=== PATIENT | male | born 1960 | race Caucasian/White ===

== ENCOUNTER 2019-06-29 16:01 | Emergency (ER) | payer OTHER ==
[~2019-06-29] VITALS: Ht 160 cm; Wt 59.0 kg
[2019-06-29] MEDS ORDERED: LIDOCAINE 0.5% HCL 50 ML VIAL ONE (16:37)
[2019-06-29] MEDS ORDERED: LIDOCAINE 1%-EPI 1:100,000 20 ML VIAL ONE (16:45)
[2019-06-29] MEDS ORDERED: LIDOCAINE 2%-EPI 1:100,000 30 ML VIAL TP ONE (17:00)
[2019-06-29] MEDS ORDERED: LIDOCAINE 2% 20 ML MDV TP ONE (17:00)
[2019-06-29] MEDS ORDERED: TDAP [DIPH/PERTUSSIS/TET] 0.5 ML VIAL IM ONE ×2 (17:00)
--- NOTE | 2019-06-29 18:30 | NUR ---
Patient discharged to home in stable condition. Written and verbal after care instructions given. Patient verbalizes understanding of instruction.
[2019-06-29 18:54] VITALS: BP 150/89
== END 2019-06-29 18:30 | disposition home or self-care (01) ==
LOC: ER 16:06
DX: S01.21XA Laceration without foreign body of nose, initial encounter (principal); S01.81XA Laceration without foreign body of other part of head, initial encounter; R51 Headache; W18.09XA Striking against other object with subsequent fall, initial encounter; Y93.89 Activity, other specified; Y92.89 Other specified places as the place of occurrence of the external cause; Y99.0 Civilian activity done for income or pay
CPT/HCPCS: 12015; 70450; 72125; 90471; 90715; 99284; A6403 ×2; J3490 ×2

== ENCOUNTER 2019-07-01 17:28 | Emergency (ER) | payer OTHER ==
[~2019-07-01] VITALS: Ht 157.5 cm; Wt 46.7 kg
[2019-07-01 17:39] VITALS: BP 128/67
== END 2019-07-01 18:29 | disposition home or self-care (01) ==
LOC: ER 17:28
DX: S01.81XD Laceration without foreign body of other part of head, subsequent encounter (principal); S01.21XD Laceration without foreign body of nose, subsequent encounter; X58.XXXD Exposure to other specified factors, subsequent encounter

== ENCOUNTER 2019-07-09 19:40 | Emergency (ER) | payer OTHER ==
[~2019-07-09] VITALS: Ht 157.5 cm; Wt 59.0 kg
[2019-07-09 19:52] VITALS: BP 136/80
== END 2019-07-09 21:23 | disposition home or self-care (01) ==
LOC: ER 19:48
DX: S01.81XD Laceration without foreign body of other part of head, subsequent encounter (principal); S01.21XD Laceration without foreign body of nose, subsequent encounter; R42 Dizziness and giddiness; X58.XXXD Exposure to other specified factors, subsequent encounter
CPT/HCPCS: 82962-TC